=== PATIENT | male | born 1975 | race Caucasian/White ===

== ENCOUNTER 2024-09-13 11:18 | Emergency (ER) | payer BC ==
[~2024-09-13] VITALS: Ht 193 cm; Wt 99.8 kg
[2024-09-13] MEDS ORDERED: ACETAMINOPHEN 500 MG TABLET ONE (12:04)
[2024-09-13] MEDS: ACETAMINOPHEN 500 MG TABLET PO ONE (12:05)
[2024-09-13 12:24] VITALS: BP 120/73; O2SAT 99
== END 2024-09-13 12:25 | disposition home or self-care (01) ==
LOC: ER 11:34
DX: S60.211A Contusion of right wrist, initial encounter (principal); X58.XXXA Exposure to other specified factors, initial encounter; Y93.89 Activity, other specified; Y92.39 Other specified sports and athletic area as the place of occurrence of the external cause; Y99.8 Other external cause status
CPT/HCPCS: 73100; A4606; A4663; A9150